=== PATIENT | female | born 1970 | race Caucasian/White ===

== ENCOUNTER 2018-02-26 10:01 | Outpatient (CLI) | payer BC | END 2018-02-26 10:02 | disposition home or self-care (01) | LOC: BICCT 10:01 | PROVIDERS: ATTEND Internal Medicine Infectious Disease | DX: R91.1 Solitary pulmonary nodule (principal); J98.4 Other disorders of lung | CPT/HCPCS: 71250 ==

== ENCOUNTER 2018-09-03 08:18 | Outpatient (CLI) | payer BC ==
--- NOTE | 2018-09-03 09:56 | CT ---
CT CHEST NONCONTRAST: HISTORY: Lung nodule. Prior tuberculosis. Followup. COMPARISON: 02/26/2018. FINDINGS: The somewhat linear area of parenchymal scarring at the lateral aspect of the right upper lobe is unc hanged in appearance from the previous exam. Focus of interstitial scarring at the right anterolateral lung base is also stable. No new lung abno rmalities. No pleural fluid or pneumothorax. Lack of contrast limits evaluation of the soft tissues. No bulky mediastinal adenopathy. IMPRESSION: Stable CT appearance of the right upper lobe parenchymal scarring and thickening and the right middle lobe interstitial thickening. No new abnormalities are demonstrated. POS: [facility]
== END 2018-09-03 08:19 | disposition home or self-care (01) ==
LOC: SCSCT 08:18
PROVIDERS: ATTEND Internal Medicine Infectious Disease
DX: R91.8 Other nonspecific abnormal finding of lung field (principal); J98.4 Other disorders of lung
CPT/HCPCS: 71250

== ENCOUNTER 2018-10-12 08:16 | Outpatient (CLI) | payer BC ==
--- NOTE | 2018-10-12 11:48 | MMO ---
BILATERAL SCREENING MAMMOGRAM: Date: 10/12/18 HISTORY: 48-year-old female. Routine screening mammography. COMPARISON: 09/26/16, 06/05/15. TECHNIQUE: CC and MLO views of both breasts are submitted for interpretation. This patient's mammogram was reviewed with the assistance of computer-aided detection. FINDINGS: The breasts are composed of heterogeneously dense fibroglandular tissue, which limits the sensitivity of mammography in the detection of underlying malignancy. Bilaterally, no suspicious dominant mass, architectural distortion, or suspicious calcification. IMPRESSION: BIRADS 1: Negative RECOMMENDATION: Annual mammogram. POS: [facility]
== END 2018-10-12 08:17 | disposition home or self-care (01) ==
LOC: SCSMAMMO 08:16
PROVIDERS: ATTEND Obstetrics & Gynecology
DX: Z12.31 Encounter for screening mammogram for malignant neoplasm of breast (principal)
CPT/HCPCS: 77067

== ENCOUNTER 2020-04-10 09:24 | Outpatient (CLI) | payer BC ==
--- NOTE | 2020-04-10 09:59 | MMO ---
Bilateral MAMMO Bilat Screen [facility]. CLINICAL HISTORY: Patient is 50 years old and is seen for screening. The patient has no family history of breast cancer. The patient has no personal history of cancer. VIEWS: The views performed were: bilateral craniocaudal with tomosynthesis and bilateral mediolateral oblique with tomosynthesis. FILMS COMPARED: The present examination has been compared to a prior imaging study performed at [facility] on 10/12/2018. This study has been interpreted with the assistance of computer-aided detection. MAMMOGRAM FINDINGS: The breasts are heterogeneously dense, which could obscure a lesion on mammography. There are benign appearing calcifications seen in both breasts. There are no suspicious masses, suspicious calcifications, or new areas of architectural distortion. IMPRESSION: THERE IS NO MAMMOGRAPHIC EVIDENCE OF MALIGNANCY. A ROUTINE FOLLOW-UP MAMMOGRAM IN 1 YEAR IS RECOMMENDED. THE RESULTS OF THIS EXAM WERE SENT TO THE PATIENT. ACR BI-RADS Category 2 - Benign finding MAMMOGRAPHY NOTE: 1. A negative mammogram report should not delay a biopsy if a dominant of clinically suspicious mass is present. 2. Approximately 10% to 15% of breast cancers are not detected by mammography. 3. Adenosis and dense breasts may obscure an underlying neoplasm. Reported by: SIMI JUNIOR MD Electonically Signed: [id number]
== END 2020-04-10 09:25 | disposition home or self-care (01) ==
LOC: BICMAMMO 09:24
PROVIDERS: ATTEND Obstetrics & Gynecology
DX: Z12.31 Encounter for screening mammogram for malignant neoplasm of breast (principal)
CPT/HCPCS: 77063; 77067